=== PATIENT | female | born 1945 | race Caucasian/White ===

== ENCOUNTER 2018-01-28 10:42 | Emergency (ER) | payer OTHER ==
[~2018-01-28] VITALS: Ht 154.9 cm; Wt 93.0 kg
[2018-01-28] MEDS ORDERED: SYNTHROID75 MCG (10:49)
[2018-01-28] MEDS ORDERED: TOPROL XL200 MG (10:50)
[2018-01-28] MEDS ORDERED: JANUMET 50-5001 EACH (10:50)
[2018-01-28] MEDS ORDERED: NIFEDIPINE ER60 MG (10:51)
== END 2018-01-28 11:43 | disposition home or self-care (01) ==
LOC: ER 10:42
DX: M54.31 Sciatica, right side (principal)

== ENCOUNTER 2019-06-13 10:00 | Emergency (ER) | payer OTHER ==
[~2019-06-13] VITALS: Ht 154.9 cm; Wt 95.3 kg
[~2019-06-13 10:00] MED LIST: JANUMET 50-5001 EACH; NIFEDIPINE ER60 MG; SYNTHROID75 MCG; TOPROL XL200 MG
== END 2019-06-13 15:57 | disposition home or self-care (01) ==
LOC: ER 10:00
DX: I16.0 Hypertensive urgency (principal); I10 Essential (primary) hypertension